=== PATIENT | male | born 1995 | race African-American/Black ===

== ENCOUNTER 2018-10-08 18:25 | Emergency (ER) | payer OTHER ==
[~2018-10-08] VITALS: Ht 170.2 cm; Wt 70.0 kg
[2018-10-08 20:23] LABS: CHLAMYDIA DNA AMPLIFICATION NEGATIVE (NEGATIVE); GC DNA AMPLIFICATION NEGATIVE (NEGATIVE)
[2018-10-08 21:00] VITALS: BP 120/71
== END 2018-10-08 21:04 | disposition home or self-care (01) ==
LOC: M ED 18:25
DX: Z20.2 Contact with and (suspected) exposure to infections with a predominantly sexual mode of transmission (principal); F17.210 Nicotine dependence, cigarettes, uncomplicated

== ENCOUNTER 2019-04-21 15:33 | Emergency (ER) | payer OTHER ==
[~2019-04-21] VITALS: Ht 170.2 cm; Wt 72.1 kg
[2019-04-21] MEDS ORDERED: ONDANSETRON 4 MG ORAL DISINTEGRATING TAB (Q0162 PER 1MG) PO ONE (16:00)
[2019-04-21 16:41] LABS: INFLUENZA A AMPLIFICATION NEGATIVE (NEGATIVE); INFLUENZA B AMPLIFICATION NEGATIVE (NEGATIVE)
[2019-04-21 16:47] VITALS: BP 124/61
[2019-04-21] MEDS ORDERED: ONDA4TAB6 PO (16:58)
== END 2019-04-21 17:04 | disposition home or self-care (01) ==
LOC: M ED 15:33
DX: B34.9 Viral infection, unspecified (principal)
CPT/HCPCS: 87502; 87880; 99284; Q0162

== ENCOUNTER 2019-08-21 18:43 | Emergency (ER) | payer OTHER ==
[~2019-08-21] VITALS: Ht 170.2 cm; Wt 74.8 kg
[~2019-08-21 18:43] MED LIST: ONDA4TAB6 PO
[2019-08-21] MEDS ORDERED: VIST50CA PO (18:53)
--- NOTE | 2019-08-21 20:13 | REP ---
Right foot four views for foreign body. The the A cutaneous metallic marker identifies the possible skin wound entrance. There is a 4 ml faintly visible density adjacent to the cutaneous skin marker on the lateral view. There is no fracture. Mineralization joint spaces are normal. Impression: Possible foreign body adjacent to the cutaneous skin marker. Electronically Signed by Eric Massey MD 08/21/2019 08:04 P
[2019-08-21] MEDS ORDERED: LIDOCAINE 2% MDV 20 ML VIAL As Ordered ONE (22:28)
[2019-08-21] MEDS ORDERED: LIDOCAINE 2% MDV 20 ML VIAL SC ONE (22:30)
[2019-08-21 22:48] VITALS: BP 117/65
== END 2019-08-21 22:54 | disposition home or self-care (01) ==
LOC: M ED 18:43
DX: S90.851A Superficial foreign body, right foot, initial encounter (principal); W25.XXXA Contact with sharp glass, initial encounter; Y92.9 Unspecified place or not applicable; Y93.9 Activity, unspecified; Y99.9 Unspecified external cause status